=== PATIENT | male | born 1960 | race Caucasian/White ===

== ENCOUNTER → 2016-11-09 | Day surgery (SDC) | payer OTHER ==
[2016-11-09] VITALS (10 sets, daily range): BP systolic 106–133; BP diastolic 64–88; PULSE 56–70; RESP 10–18; O2SAT 96–100
[~2016-11-09] VITALS: Ht 175.3 cm; Wt 78.8 kg
[~2016-11-09] MED LIST: ASPI325T32 PO; CEPH-512 PO; CITA20TA11 PO; CeFAZolin 2 Gm/50 mL D5W Duplex Bag IV ONE; CeFAZolin 2 Gm/50 mL D5W IV Premix IV ONE; Dexamethasone 4 mg/mL Inj IVPUSH PRN; Dexamethasone 4 mg/mL Inj ONE; EPHEDrine Sulfate 50 mg/mL Inj IVPUSH PRN; GABA600T2 PO; HYDROmorphone 1 mg/mL Inj IVPUSH PRN; IBUP800T28 PO; Ketamine 10 mg/mL 20 mL Inj ONE; Labetalol 5 mg/mL 20 mL Inj IV PRN; Labetalol 5 mg/mL 4 mL Inj IV PRN; Lactated Ringer's 1,000 ML IV SCH; Lactated Ringer's 500 ML IV PRN; Lidocaine 1%-Epi 1:100,000 20 mL Inj INFILTRATE ONE; MetoCLOpramide 5 mg/mL 2 mL Inj IVPUSH PRN; Ondansetron 2 mg/mL 2 mL Inj IVPUSH PRN; Ondansetron 2 mg/mL 2 mL Inj ONE; Phenylephrine 10,000 mCg/mL Inj IVPUSH PRN; Propofol 10 mg/mL 20 mL Inj ONE; fentaNYL-PF 50 mCg/mL 2 mL Inj IVPUSH PRN; fentaNYL-PF 50 mCg/mL 2 mL Inj ONE; hydrALAZINE 20 mg/mL Inj IVPUSH PRN
[2016-11-09] MEDS: Lactated Ringer's 1,000 ML IV SCH ×2 (05:43→12:49)
--- NOTE | 2016-11-09 12:43 | PCM.HPANE ---
Patient Data Date of Service: Nov 09, 2016 Surgeon Admitting Provider: Attending Provider:Brandyn Velasquez DO Primary Care Physician:Evie Fuller MD Other Provider:Rufina Mata Anesthesia Reason for Visit Right Thumb Laceration With Tendon Involvement Ht/WT & BMI Height (Feet): 5 Height (Inches): 9.00 Weight (Kilograms): 78.8 Body Mass Index 25.00 Allergies Coded Allergies: nickel (Verified Allergy, Unknown, does not heal well, 11/08/16) Past Anesthesia History Anesthesia History: Denies:: Abnormal Airway, Anesthesia Reactions, Difficult Intubation, Fam Anesthesia Reaction, Malignant Hyperthermia Diabetes History Hx Diabetes?: No MRSA MRSA: No Medications Blood Thinner: Aspirin Hypertension Medication: No Home Meds Incl Beta Yadira: No Reported Medications Cephalexin (Keflex)500 Mg [id number] Mg PO QID #40 CAPSULE Ref 0 11/08/16 Ibuprofen 800 Mg [id number] Mg PO TID PRN For Pain Ref 0 11/08/16 Gabapentin 600 Mg Tablet1,200 Mg PO QPM Ref 0 11/08/16 Gabapentin 600 Mg [id number] Mg PO QAM Ref 0 11/08/16 Citalopram 20 Mg Udbosr67 Mg PO DAILY Ref 0 11/08/16 Aspirin 325 Mg [id number] Mg PO DAILY #1 BOTTLE 11/08/16 Discontinued Reported Medications Hydromorphone (Dilaudid)4 Mg Tablet4-8 Mg PO Q4 PRN For Pain Ref 0 01/19/14 Sennosides/Docusate Sodium (Senna-Docusate Sodium Tablet)1 Each Tablet1 Each PO BID PRN 01/19/14 Hydroxyzine Pamoate (Vistaril)25 Mg [id number] Mg PO TID PRN For Itching Ref 0 01/19/14 Aspirin/Calcium Carbonate/Mag (Aspirin Buffered)325 Mg [id number] Mg PO DAILY Ref 0 01/19/14 oxyCODONE-Acetaminophen 5-325 mg 1 Each Tablet1-2 Tab PO Q6H PRN For Pain Ref 0 01/19/14 Gabapentin (Neurontin)300 Mg [id number] Mg PO TID 30 Days Ref 0 01/19/14 History History of ENT Problems?: No HEENT History: Denies:: Abnormal Airway Cataracts Difficult Intubation Dysphagia Glaucoma Hearing Problem Sinus Problem TMJ Denture Type: None Teeth Condition: Within Normal Limits Hx of Heart Problems?: No Cardiovascular History: Denies:: AICD Abdominal Aortic Aneurism Atrial Fibrillation Cardiac Surgery Chest Pain Congestive Heart Failure Coronary Artery Disease Heart Murmur Hypertension Irregular Heartbeat Pacemaker Peripheral Vascular Rheumatic Fever Hx of Respiratory Problem?: No Respiratory History: Denies:: Asthma COPD Emphysema Oxygen Administration Pneumonia Pulmonary Embolism Tuberculosis Use of C-PAP Machine (did not tolerate) Use of Inhalers / NEBS Hx Neurologic Problems?: Yes Neurological History: Positive for:: Headaches (ever since fall 2007- 3-4x month) Denies:: CVA Multiple Sclerosis Parkinson's Disease Seizures Other Neurological Pertinent: past hx concussion 2007 with LOC Hx of GI Problems?: No Hx of Problems?: Yes Genitourinary History: Positive for:: Kidney Stones (prior kidney stones - needed surgery) Denies:: Urinary Tract Infection Male Hx: Denies:: Prostate Problems Scrotal Mass Testicular Surgery Skin History: Denies:: History Skin Disorders? Pressure Ulcers Hx Musculoskeletal Problems?: Yes Musculoskeletal History: Positive for:: Back Injury (back surgery x 2, neck surgery x1 ) Musculoskeletal Trauma (right thumb laceration current admission ) Osteoarthritis Denies:: Degenerative Joint Fibromyalgia Joint Replacement Myasthenia Gravis Systemic Lupus Hx of Psycho/Social Problems?: Yes Psycho Social History: Positive for:: Hx Depression (after fall) Hx Surgeries?: Yes (LUMBAR SPINE X2,CERVICAL SPINE,KIDNEY STONE,ELBOW RPR,ORIF LT 5TH METACARPA) Hx Any Other Health Problems?: Yes Other History: Denies:: Cancer Endocrine Disease Hospitalization Thyroid Disease History Blood Transfusions: Positive for:: Accept Blood Products? Denies:: Blood Transfusions Hx Diabetes: No Hx Alcohol Use: YesAlcoholic Drinks Per Day: multiple drinks dailyHx Substance Use: Yes (marijuana daily inhale) Smoking Status: Current Every Day Smoker Have You Smoked inLast 12 mo: Yes (one half pack daily) Stop/Bang S-Snoring: Do You Snore Loudly: No T-Tired: feel tired, fatigued: No O-Obsered: Observed not breath: No P-Blood Pressure: treated: No B- Body Mass Index > 35 kg/m2: No A- Age over 50: Yes N- Neck Large Circumference: No G- Gender Male: Yes JADA Total Score: 2 JADA Risk Assessment: Low Risk, <3 Yes Risk Assessment Category Category 1A: Patient has history of documented sleep apnea, and HAS NOT received any narcotic, sedative or anesthesia administration during this stay. Category 1B: Patient has history of documented sleep apnea, and HAS received any narcotic , sedative or anesthesia administration during this stay Category 2: Patient has SUSPECTED Obstructive Sleep Apnea, and HAS received any narcotic , sedative or anesthesia administration during this stay. Category 3: Patient has SUSPECTED Obstructive Sleep Apnea and HAS NOT received narcotic, sedative or anesthesia administration during this stay. Category 4: Outpatient in Procedural Areas with known sleep apnea or who screen positive for High Risk via the STOP/BANG questionnaire. Exam Exam Vital Signs Vital Signs Date Time Temp Pulse Resp B/P Pulse Ox O2 Delivery O2 Flow Rate FiO2 11/09/16 11:55 36.5 63 16 106/78 98 Room Air General Appearance: Alert, Oriented X3, Cooperative, No Acute Distress HEENT/AIRWAY: MP 2 Lungs: Clear to Auscultation, Normal Air Movement Heart: Exam Unremarkable, Regular Rate/Rhythm, No Murmurs/Rubs/Gallops Meds/Labs/Diagnostics Admission Meds Current Medications Lactated Ringer's (Lr) 1,000 ml @ 120 mls/hr Q8H20M IV Last administered on 05:43; Start 11/09/16 at 05:00; Stop 11/09/16 at 13:19 Acetaminophen (Tylenol) 975 mg PREOP ONCE PO Last administered on 11/09/16 11 :53; Start 11/09/16 at 06:00; Stop 11/09/16 at 06:01; Status DC Plan Impression Patient chart reviewed, patient interviewed and anesthestic plan with risks, benefits, and alternatives discussed, and informed consent obtained. NPO per Anesth. Guidelines: Yes ASA Physical Status: ASA2 Mod Systemic Disease Anesthetic Plan: GA Bene/Risks/Altern/Consents: Yes HP Complete Prior to Induction: Yes Jose Robertson MD Nov 09, 2016 12:43
[2016-11-09] MEDS: HYDROcodone-APAP 5-325 mg Tablet PO PRN (14:11)
--- NOTE | 2016-11-09 15:18 | OP ---
[address] [address] OPERATIVE REPORT PATIENT: PAULETTE WILL : 1960 MR#: [id number] ADMIT: 11/09/2016 JOB ID: [id number] DATE OF SURGERY: 11/09/2016 PREOPERATIVE DIAGNOSIS(ES): Right thumb extensor pollicis longus (EPL) tendon laceration. POSTOPERATIVE DIAGNOSIS(ES): Right thumb extensor pollicis longus (EPL) tendon laceration. PROCEDURE: Right thumb irrigation and debridement with repair of the extensor pollicis longus tendon in zone two. SURGEON: Brandyn Velasquez D.O. ANESTHESIA: General. HISTORY: The patient is a pleasant 56-year-old male who presented to me a few days after sustaining a cut to the dorsal aspect of his right thumb. He was sharpening a machete when it slipped, cutting the top of his thumb. He presented to his primary care physician a few days later as he was unable to further extend the thumb. She referred him over to me, and I evaluated, and he demonstrated a transverse laceration overlying the proximal phalanx dorsum with lack of IP extension. I discussed with the patient the risks, benefits, alternatives, and indications to proceed with a right thumb exploration with EPL tendon repair. He understood the risks include, but are not limited to, neurovascular injury, tendon injury, infection, failure of fixation, stiffness, persistent pain, all of which may require further intervention. The patient had all questions answered. Consent was signed and placed in the chart. PROCEDURE IN DETAIL: The patient was brought to the operative suite and placed supine on the operating table. Surgical time-out performed. Everyone in the room was in agreement. After appropriate anesthesia was obtained, a right upper arm tourniquet was applied and the right upper extremity was prepped and draped in sterile fashion. The right upper extremity was then exsanguinated and the tourniquet inflated to 250 mmHg. The patient's laceration was opened back up and extended along the lateral margins both distally and proximally. Approximately 2 cm dissection was carried down to the overlying extensor tendon that was found to be completely transected in a transverse fashion. The ends were then cleaned up of any fibrous tissues and reapproximated and repaired with 4-0 FiberLoop in a 6-strand core suture repair. This was further reinforced with a 6-0 nylon in a cross stitch fashion. Excellent fixation and repair was achieved. Copious irrigation was performed and the overlying skin closed with 4-0 nylon in simple interrupted fashion. The patient was then placed into a well-padded well-molded thumb spica splint. ESTIMATED BLOOD LOSS: Less than 1 cc. COMPLICATIONS: None. DISPOSITION: The patient tolerated the procedure well. Anesthesia was reversed. The patient was transferred to the PACU for recovery. POSTOPERATIVE PLAN: The patient will see the occupational therapist within the first two weeks after surgery to have a thumb spica brace made. He is to keep that brace on at all times until postop week four, when we will start initiating some gentle range of motion of the thumb. He is to follow up in the office in two weeks for suture removal.
== END | disposition home or self-care (01) ==
LOC: SAS 11:15
PROVIDERS: ATTEND Orthopaedic Surgery
DX: S66.221A Laceration of extensor muscle, fascia and tendon of right thumb at wrist and hand level, initial encounter (principal); G47.33 Obstructive sleep apnea (adult) (pediatric); F17.210 Nicotine dependence, cigarettes, uncomplicated
CPT/HCPCS: 26410; J0690; J1100; J1200; J1885; J2250; J2405; J2704; J3010; J7120